=== PATIENT | male | born 1985 | race Caucasian/White ===

== ENCOUNTER 2017-08-20 06:54 | Emergency (ER) | payer OTHER ==
[~2017-08-20] VITALS: Ht 162.6 cm; Wt 77.6 kg
[2017-08-20 07:29] LABS: BASO % 1 % (0-3); EOS % 1 % (0-3); HEMATOCRIT 44.8 % (39.0-53.0); HEMOGLOBIN 15.2 g/dL (13.0-17.5); LYMPH # 1.9 x10^3/uL (1.0-4.8); LYMPH % 23 % (24-48); MEAN CORPUSCULAR HEMOGLOBIN 29 pg (25-35); MEAN CORPUSCULAR HGB CONC 34 g/dL (31-37); MEAN CORPUSCULAR VOLUME 85 fL (79-100); MONO % 8 % (0-9); NEUT % 69 % (31-73); PLATELET COUNT 239 x10^3/uL (140-400); RED BLOOD COUNT 5.25 x10^6/uL (4.30-5.70); RED CELL DISTRIBUTION WIDTH 13.6 % (11.5-14.5); WHITE BLOOD COUNT 8.4 x10^3/uL (4.0-11.0)
--- NOTE | 2017-08-20 07:34 | EKG ---
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
[2017-08-20] MEDS ORDERED: LIDO:MAALOX:DONNATAL 1:1:1 15 ML SINGLE DOSE SWSW ONE (07:45)
[2017-08-20 07:59] LABS: CREATININE 0.9 mg/dL (0.7-1.3); GFR 99.1
[2017-08-20 08:03] LABS: ALBUMIN 4.1 g/dL (3.4-5.0); ALBUMIN/GLOBULIN RATIO 1.2 (1.0-1.7); TOTAL BILIRUBIN 0.3 mg/dL (0.2-1.0); TOTAL PROTEIN 7.5 g/dL (6.4-8.2)
--- NOTE | 2017-08-20 08:40 | RAD ---
Indication: Right upper quadrant pain with nausea and vomiting. Axial imaging through the abdomen and pelvis was performed without contrast. No prior studies are available for comparison. The lung bases are clear. Liver is unremarkable. There appears to be a stone within the gallbladder. There is questionable wall thickening of the gallbladder. This could be better assessed with gallbladder ultrasound. No ductal dilatation is seen. The pancreas and spleen are unremarkable. No adrenal mass is identified. No renal calculi or hydronephrosis is seen. Aorta is unremarkable. Small and large bowel loops are normal caliber. The appendix is not visualized but no inflammatory process in the right lower quadrant is seen. Bladder is unremarkable. There is no ascites. Impression: 1. Cholelithiasis and questionable gallbladder wall thickening. Gallbladder ultrasound would be useful for further evaluation. No other significant abnormality is detected. PQRS Compliance Statement: One or more of the following individualized dose reduction techniques were utilized for this examination: 1. Automated exposure control 2. Adjustment of the mA and/or kV according to patient size 3. Use of iterative reconstruction technique
--- NOTE | 2017-08-20 10:28 | RAD ---
Indication: Abnormal gallbladder on recent CT. Correlation is made with CT earlier the same day. The pancreas was poorly visualized. IVC was poorly visualized. Liver is normal in size. Gallbladder contains multiple stones. There is gallbladder wall thickening up to 7 mm. No pericholecystic fluid or biliary ductal dilatation is seen. The right kidney is unremarkable. There is no ascites. Impression: Cholelithiasis and gallbladder wall thickening, suspicious for acute cholecystitis.
[2017-08-20] MEDS ORDERED: PIPERACILLIN/TAZO IV Push 4.5 GM VIAL. IVP ONE (11:30)
[2017-08-20] MEDS ORDERED: IV NORMAL SALINE 1000ML BAG 1,000 ML IV ONE (11:30)
[2017-08-20] MEDS ORDERED: PIPERACILLIN/TAZOBACTAM 4.5 GM in IV DEXTROSE 5% 100 ML IV ONE (11:30)
[2017-08-20] MEDS ORDERED: MORPHINE SULFATE 10 MG/ML VIAL. IV ONE (12:00)
[2017-08-20 13:00] VITALS: BP 110/66
[2017-08-20] MEDS ORDERED: LEVO500T59 PO (13:25)
[2017-08-20] MEDS ORDERED: METR500T PO (13:25)
[2017-08-20] MEDS ORDERED: HYDR-971 PO (13:27)
[2017-08-20] MEDS ORDERED: AMOX1TAB61 PO (13:35)
--- NOTE | 2017-08-20 13:40 | PHYS DOC ---
Past Medical History Past Medical History: Other Additional Past Medical Histor: adhd Alcohol Use: None Drug Use: None Adult General Chief Complaint Chief Complaint: ABDOMINAL PAIN [facility] HPI Patient is a 32 year old male who presents with abdominal pain that started around 9 PM last night. Did take naproxen with no relief. He states that the pain increases if he tries to lay flat, sit up or if he moves around much. For a while the pain was so great that he was worried that he might be having a heart attack, but he felt the location was lower not that it was probably not chest pain. As the pain has continued to increase and worsen he did present to the Emergency Department for investigation to the cause of this pain. Documentation by Steffany Schaffer MD: I was informed that the patient wanted to leave AMA and thus engaged in the patient's care. Prior to this our [employer]CH[employer]IC was primary. Patient is a 32-year-old male with epigastric abdominal pain found to have acute cholecystitis. Dr. Herzog came to evaluate the patient. The patient wants to leave AGAINST MEDICAL ADVICE. I had a long facial discussion with the patient about risks and benefits and standard practice with cholecystitis. AMA I informed the patient of their right to a medical screening exam and any treatment and/or stabilization that may be necessary regardless of their ability to pay. The patient appears to have intact insight, judgment, and reason. In my opinion, this patient has the capacity to make decisions. The patient presented with [abd pain] and I am concerned that this is cholecystitis My initial plan prior to the pt expressing the desire to leave was surgery with IV abx. I explained the risk of and disability to the patient in plain language which they were able to demonstrate in their own words verbal understanding. Specifically, I explained the risk of and disability. The pt has verbalized understanding of my concerns. I offered alternatives to the therapy including outpatient abx and pain meds with surgeon follow up. I recommended the pt follow up with Dr. Herzog for surgical treatment. I explained that at any time if the patient changed their mind, we are always open and would be happy to have them back. The patient refused further care and then left against medical advice. Review of Systems Review of Systems Constitutional: Denies fever or chills [] Respiratory: Denies cough or shortness of breath [] Cardiovascular: No additional information not addressed in HPI [] GI: See history of present illness : Denies dysuria or hematuria [] Musculoskeletal: Denies back pain or joint pain [] Integument: Denies rash or skin lesions [] Neurologic: Denies headache, focal weakness or sensory changes [] Endocrine: Denies polyuria or polydipsia [] All other systems were reviewed and found to be within normal limits, except as documented in this note. Current Medications Current Medications Current Medications Medications (Trade) Dose Ordered Sig/Mary Start Time Stop Time Status Last Admin Dose Admin Acetaminophen/ Hydrocodone Bitart (Lortab 5/325) 2 tab 1X ONCE 08/20/17 13:45 08/20/17 13:46 DC 08/20/17 13:44 2 TAB Morphine Sulfate 5 mg 1X ONCE 08/20/17 12:00 08/20/17 12:01 DC 08/20/17 12:05 5 MG Multi-Ingredient Mouthwash/Gargle (Gi Cocktail Single Dose) 15 ml 1X ONCE 08/20/17 07:45 08/20/17 07:46 DC 08/20/17 07:55 15 ML Piperacillin Sod/ Tazobactam Sod (Zosyn) 4.5 gm 1X ONCE 08/20/17 11:30 08/20/17 11:31 DC 08/20/17 12:04 4.5 GM Piperacillin Sod/ Tazobactam Sod 4.5 gm/Dextrose 100 ml @ 200 mls/hr 1X ONCE 08/20/17 11:30 08/20/17 11:30 DC Sodium Chloride 1,000 ml @ 1,000 mls/hr 1X ONCE 08/20/17 11:30 08/20/17 12:29 DC 08/20/17 12:04 1,000 MLS/HR Allergies Allergies Allergies Coded Allergies Type Severity Reaction Last Updated Verified No Known Drug Allergies 08/20/17 No Physical Exam Physical Exam Constitutional: Well developed, well nourished, no acute distress, non-toxic appearance. [] Cardiovascular:Heart rate regular rhythm, no murmur [] Lungs & Thorax: Bilateral breath sounds clear to auscultation [] Abdomen: Tenderness to the gastric area and right upper quadrant, Burks's sign is positive, the abdomen is flat and fairly soft with no guarding Skin: Warm, dry, no erythema, no rash. [] Back: No tenderness, no CVA tenderness. [] Extremities: No tenderness, no cyanosis, no clubbing, ROM intact, no edema. [] Neurologic: Alert and oriented X 3, normal motor function, normal sensory function, no focal deficits noted. [] Psychologic: Affect normal, judgement normal, mood normal. [] Current Patient Data Vital Signs Vital Signs Date Time Temp Pulse Resp B/P (MAP) Pulse Ox O2 Delivery O2 Flow Rate FiO2 08/20/17 13:00 62 110/66 (81) 99 Room Air 08/20/17 06:54 98.7 12 98.7 Lab Values Laboratory Tests Test 08/20/17 07:19 White Blood Count 8.4 x10^3/uL (4.0-11.0) Red Blood Count 5.25 x10^6/uL (4.30-5.70) Hemoglobin 15.2 g/dL (13.0-17.5) Hematocrit 44.8 % (39.0-53.0) Mean Corpuscular Volume 85 fL (79-100) Mean Corpuscular Hemoglobin 29 pg (25-35) Mean Corpuscular Hemoglobin Concent 34 g/dL (31-37) Red Cell Distribution Width 13.6 % (11.5-14.5) Platelet Count 239 x10^3/uL (140-400) Neutrophils (%) (Auto) 69 % (31-73) Lymphocytes (%) (Auto) 23 % (24-48) L Monocytes (%) (Auto) 8 % (0-9) Eosinophils (%) (Auto) 1 % (0-3) Basophils (%) (Auto) 1 % (0-3) Neutrophils # (Auto) 5.8 x10^3uL (1.8-7.7) Lymphocytes # (Auto) 1.9 x10^3/uL (1.0-4.8) Monocytes # (Auto) 0.6 x10^3/uL (0.0-1.1) Eosinophils # (Auto) 0.0 x10^3/uL (0.0-0.7) Basophils # (Auto) 0.0 x10^3/uL (0.0-0.2) Sodium Level 140 mmol/L (136-145) Potassium Level 4.0 mmol/L (3.5-5.1) Chloride Level 104 mmol/L (98-107) Carbon Dioxide Level 27 mmol/L (21-32) Anion Gap 9 (6-14) Blood Urea Nitrogen 15 mg/dL (8-26) Creatinine 0.9 mg/dL (0.7-1.3) Estimated GFR (Cockcroft-Gault) 99.1 BUN/Creatinine Ratio 17 (6-20) Glucose Level 104 mg/dL (70-99) H Calcium Level 9.0 mg/dL (8.5-10.1) Total Bilirubin 0.3 mg/dL (0.2-1.0) Aspartate Amino Transferase (AST) 21 U/L (15-37) Alanine Aminotransferase (ALT) 40 U/L (16-63) Alkaline Phosphatase 92 U/L (46-116) Total Protein 7.5 g/dL (6.4-8.2) Albumin 4.1 g/dL (3.4-5.0) Albumin/Globulin Ratio 1.2 (1.0-1.7) Laboratory Tests 08/20/17 07:19 Laboratory Tests 08/20/17 07:19 EKG EKG [] Radiology/Procedures Radiology/Procedures [] Signed PATIENT: JOSEPH BEST ACCOUNT: [id number] : 1985 LOCATION: ER AGE: 32 SEX: M EXAM STATUS: REG ER ORD. PHYSICIAN: MARIELY WYNNE APRN REASON: abdominal pain x 1 day with upper right quadrant pain PROCEDURE: CT ABDOMEN PELVIS WO CONTRAST Indication: Right upper quadrant pain with nausea and vomiting. Axial imaging through the abdomen and pelvis was performed without contrast. No prior studies are available for comparison. The lung bases are clear. Liver is unremarkable. There appears to be a stone within the gallbladder. There is questionable wall thickening of the gallbladder. This could be better assessed with gallbladder ultrasound. No ductal dilatation is seen. The pancreas and spleen are unremarkable. No adrenal mass is identified. No renal calculi or hydronephrosis is seen. Aorta is unremarkable. Small and large bowel loops are normal caliber. The appendix is not visualized but no inflammatory process in the right lower quadrant is seen. Bladder is unremarkable. There is no ascites. Impression: 1. Cholelithiasis and questionable gallbladder wall thickening. Gallbladder ultrasound would be useful for further evaluation. No other significant abnormality is detected. PQRS Compliance Statement: One or more of the following individualized dose reduction techniques were utilized for this examination: 1. Automated exposure control 2. Adjustment of the mA and/or kV according to patient size 3. Use of iterative reconstruction technique DICTATED and SIGNED BY: CYNTHIA SANDERS MD DATE: 08/20/17 0834 CC: SERAFIN RODRIGUEZ; MARIELY WYNNE APRN ~ Impressions: PATIENT: JOSEPH BEST ACCOUNT: [id number] : 1985 LOCATION: ER AGE: 32 SEX: M EXAM STATUS: REG ER ORD. PHYSICIAN: MARIELY WYNNE APRN REASON: gallbladder evaluation PROCEDURE: ABDOMEN LTD Indication: Abnormal gallbladder on recent CT. Correlation is made with CT earlier the same day. The pancreas was poorly visualized. IVC was poorly visualized. Liver is normal in size. Gallbladder contains multiple stones. There is gallbladder wall thickening up to 7 mm. No pericholecystic fluid or biliary ductal dilatation is seen. The right kidney is unremarkable. There is no ascites. Impression: Cholelithiasis and gallbladder wall thickening, suspicious for acute cholecystitis. DICTATED and SIGNED BY: CYNTHIA SANDERS MD DATE: 08/20/17 1022 CC: SERAFIN RODRIGUEZ; MARIELY WYNNE APRN ~ Course & Med Decision Making Course & Med Decision Making Pertinent Labs and Imaging studies reviewed. (See chart for details) []1. Cholelithiasis 2. Cholecystitis The patient had a discussion with Dr. Herzog from surgery about the need to have his gallbladder removed. The patient states that he cannot stay for surgery today because he has not taken care of his daughter. He is going to be placed on Augmentin and [place] for pain. Dr. Herzog did say that he would be happy to see him after the first of the year for removal of his gallbladder. The patient has been strongly encouraged to reconsider and numerous staff members asked if they could be of service in arranging for his daughter to go to stay with a family member. He insists that this will have to be done at a later date. The patient is going to sign out AMA understanding that he is encouraged to return to the emergency department if he worsens. He was given a list of symptoms to watch for and states that he will return immediately if any of those occur. It was strongly verbalized by Dr. Schaffer how dangerous a perforated gallbladder can become. The patient states that he is aware of the risks and still chooses to leave the hospital. Dragon Disclaimer Dragon Disclaimer This electronic medical record was generated, in whole or in part, using a voice recognition dictation system. Departure Departure Impression: Primary Impression: Cholecystitis Additional Impression: Cholelithiasis Disposition: HOME, SELF-CARE Condition: STABLE Patient Instructions: Cholelithiasis, Cholecystitis Additional Instructions: Follow-up with Dr. Herzog as per your discussion for further evaluation and surgery to remove your gallbladder. If worsening please return to the emergency department immediately. Scripts Amoxicillin/Potassium Clav (AUGMENTIN 875-125 TABLET) 1 Each Tablet 1 TAB PO BID, #20 TAB Prov: MARIELY WYNNE APRN 08/20/17 Hydrocodone/Apap 5-325 (NORCO 5-325 TABLET) 1 Each Tablet 1-2 TAB PO Q4-6HRS, #20 TAB Prov: MARIELY WYNNE APRN 08/20/17 Problem Qualifiers STEFFANY SCHAFFER MD Aug 20, 2017 13:40 MARIELY WYNNE APRN Aug 20, 2017 16:29
[2017-08-20] MEDS ORDERED: HYDROcodone/APAP 5/325MG 1 TAB TABLET PO ONE (13:45)
[2017-08-26] MEDS ORDERED: DEXT15TA PO (18:32)
== END 2017-08-20 13:49 | disposition left against medical advice (07) ==
LOC: ER 06:54
DX: K80.10 Calculus of gallbladder with chronic cholecystitis without obstruction (principal); F90.9 Attention-deficit hyperactivity disorder, unspecified type
CPT/HCPCS: 36415; 74176; 76705; 80053; 85025; 93005; 96361; 96374; 96375; 99285; J2270; J2543; J7030

== ENCOUNTER 2017-08-27 10:12 | Day surgery (SDC) | payer OTHER ==
[~2017-08-27 10:12] MED LIST: BUPIVACAINE MPF 0.5% 30 ML VIAL.; DEXAMETHASONE SOD PHOS 20 MG/5 ML VIAL.; GLUCAGON,HUMAN RECOMBINANT 1 MG/ML VIAL.; HYDROmorphone 2 MG/ML VIAL IV; LIDOCAINE 2% PF Vial for OR 5 ML VIAL.; MIDAZOLAM HCL/PF 2 MG/2 ML VIAL.; MORPHINE SULFATE 2 MG/ML DISP.SYRIN. IV; ONDANSETRON PF 4 MG/2 ML VIAL.; ONDANSETRON PF 4 MG/2 ML VIAL. IV; PROPOFOL 20 ML IV; ROCURONIUM 50 MG/5 ML VIAL.; SURGICEL HEMOSTAT 4X8 EACH.; ceFAZolin 2GM PREMIX 2 GM/50 ML BAG IV; fentaNYL PF VIAL 100 MCG/2 ML VIAL; fentaNYL PF VIAL 100 MCG/2 ML VIAL IV
[2017-08-27] MEDS: IV RINGERS,LACTATED 1000ML 1,000 ML IV (10:40)
[2017-08-27] MEDS: LIDOCAINE 1% PF 2 ML VIAL. ID (11:22)
[2017-08-27] MEDS: IOHEXOL 300 MG/ML 100ML VIAL. (11:40)
[2017-08-27] MEDS: BUPIVAC MPF-EPI 0.5%-1:200000 30 ML VIAL. (11:40)
[2017-08-27] MEDS ORDERED: NEOSTIGMINE METHYLSULFATE 5 MG/5 ML SYRINGE. (11:51)
[2017-08-27] MEDS ORDERED: GLYCOPYRROLATE 1 MG/5 ML VIAL. (11:51)
[2017-08-27] MEDS ORDERED: PHENYLEPHRINE in 0.9% NACL PF 1 MG/10 ML SYRINGE. IV (11:51)
[2017-08-27] MEDS ORDERED: KETOROLAC 30 MG/ML INJ FOR OR. INJ (11:52)
[2017-08-27] MEDS ORDERED: DESFLURANE 61 TO 120 MINUTES IH (11:54)
[2017-08-27] MEDS: PROCHLORPERAZINE 10 MG/2 ML VIAL. IV (12:55)
[2017-08-27] MEDS: fentaNYL PF VIAL 100 MCG/2 ML VIAL IV ×3 (12:55→14:15)
[2017-08-27] MEDS: HYDROcodone/APAP 5/325MG 1 TAB TABLET PO (14:01)
== END 2017-08-27 15:14 | disposition home or self-care (01) ==
LOC: SURG 10:12
DX: K80.12 Calculus of gallbladder with acute and chronic cholecystitis without obstruction (principal); F90.9 Attention-deficit hyperactivity disorder, unspecified type
CPT/HCPCS: 47563; 74300; 88304; C1769; J0690; J0780; J1100; J1610; J1885; J2250; J2370; J2405; J2704; J2710; J3010; J3490; J7030; J7120; Q9967